=== PATIENT | female | born 1995 | race Caucasian/White ===

== ENCOUNTER 2018-05-01 22:53 | Emergency (ER) | payer OTHER ==
[~2018-05-01] VITALS: Ht 162.6 cm; Wt 52.2 kg
[2018-05-01 22:53] VITALS: BP 120/74
[2018-05-01] MEDS ORDERED: TDAP [DIPH/PERTUSSIS/TET] 0.5 ML VIAL IM ONE ×2 (23:15→23:30)
[2018-05-01] MEDS ORDERED: LIDOCAINE 1% INJ 50 ML MDV IJ ONE ×2 (23:15→23:30)
--- NOTE | 2018-05-01 23:17 | NUR ---
ER [employer]PER[employer] AT BEDSIDE FOR I/D
[2018-05-01] MEDS ORDERED: CEPHALEXIN MONOHYDRATE 500 MG CAPSULE PO ONE ×2 (23:30→23:39)
[2018-05-01] MEDS ORDERED: SULFAMETH/TRIMETH 800/160 MG 1 UDTAB TABLET PO ONE ×2 (23:30→23:39)
[2018-05-01] MEDS ORDERED: IBUPROFEN 600 MG TABLET PO ONE ×2 (23:30→23:39)
== END 2018-05-01 23:48 | disposition home or self-care (01) ==
LOC: ER 22:53
DX: L02.414 Cutaneous abscess of left upper limb (principal); F11.10 Opioid abuse, uncomplicated; F17.200 Nicotine dependence, unspecified, uncomplicated
CPT/HCPCS: 10060; 90471; 90715; 99284; 99406; A4606; A6407; J3490; Z7610